=== PATIENT | male | born 1950 | race Caucasian/White ===

== ENCOUNTER 2017-04-05 23:29 | Emergency (ER) | payer MEDICARE, OTHER ==
[2017-04-06] MEDS ORDERED: ONDANSETRON HCL/PF 2 MG/ML VIAL ONE (00:12)
[2017-04-06] MEDS ORDERED: KETOROLAC TROMETHAMINE 30 MG/ML VIAL IV ONE (00:12)
[2017-04-06] MEDS ORDERED: KETOROLAC TROMETHAMINE 30 MG/ML VIAL ONE (00:12)
[2017-04-06] MEDS ORDERED: ONDANSETRON HCL/PF 2 MG/ML VIAL IV ONE (00:12)
--- NOTE | 2017-04-06 00:18 | ERNOTE ---
ER Male HPI Stated Complaint: ABA STONE ER Male: other - right flank pain Time Seen by Provider: 04/06/17 00:08 Source: patient Exam Limitations: no limitations Immunizations: IMMUNIZATION HX Immunizations Up to Date Yes Allergies/Adverse Reactions: Allergies No Known Allergies Allergy (Verified 04/05/17 23:39) Home Medications: HOME MEDICATIONS Psyllium Husk (with Sugar) [Metamucil Packet] 1 each PO BID 02/05/14 [Last Taken 02/12/14 16:30] Aspirin 81 mg PO DAILY 04/06/17 [Last Taken Unknown] Atorvastatin Calcium 40 mg PO DAILY 04/06/17 [Last Taken Unknown] Carvedilol [Coreg] 6.25 mg PO BID 04/06/17 [Last Taken Unknown] Losartan Potassium [Cozaar] 100 mg PO DAILY 04/06/17 [Last Taken Unknown] Nitroglycerin 0.4 mg SL PRN 04/06/17 [Last Taken Unknown] - History of Present Illness Narrative: pt states he was awakened by right flank pain around 21:25 last night. He expected the pain to resolve but it has worsened. He had previous kidney stone on the left Timing: Present: getting worse Quality: Present: moderate Onset Location: Present: right flank Activities at Onset: Present: sleep Prior Abdominal Problems: Present: similar symptoms Review of Systems - Review of Systems Constitutional: Absent: recent illness EYE: Present: no symptoms reported ENT: Present: no symptoms reported Respiratory: Present: no symptoms reported Cardiology: Present: no symptoms reported Gastrointestinal/Abdominal: Present: See HPI. Absent: vomiting, diarrhea, constipation Genitourinary: Absent: dysuria Musculoskeletal: Present: no symptoms reported Skin: Absent: rash - Patient's Past Medical History Patient History - Medical: Kidney stone Patient History - Cardiac/Respiratory: Coronary Heart Disease, Hypertension, Hyperlipidemia Patient History - Cancer: No Hx of Cancer Patient History - Surgical Procedures: Cardiac stent, Total Hip Replacement Patient History - Other: None - Social History Living Situations: home Psych History: No pertinent hx Smoking Status: Never smoker - Immunizations Immunizations Up to Date: Yes Physical Exam - Physical Exam General Appearance: Present: wd/wn, alert, no apparent distress Head Exam: Present: normal inspection, no evidence of injury Neck: Present: normal inspection, supple Respiratory: Present: no respiratory distress, normal breath sounds, no accessory muscle use, lungs clear Cardiovascular/Chest: Present: regular rate, rhythm, no murmur Gastrointestinal/Abdominal: Present: normal bowel sounds, tenderness - RLQ. Absent: distended, guarding, rebound Back Exam: Present: CVA tenderness (R) - minimal Extremity Exam: Present: normal inspection, normal range of motion Neurological Exam: Present: alert, oriented, normal mood/affect Skin Exam: Present: normal color, warm/dry ED Progress - Results and Orders Patient's Lab Results:: I have reviewed the patient's lab results. Results and Orders: Laboratory Tests 04/06/17 02:25 Urine Color Yellow Urine Appearance Cloudy Urine pH 6.0 Ur Specific [place] >=1.030 Urine Protein 30 H Urine Glucose (UA) Negative Urine Ketones Negative Urine Blood 250 H Urine Nitrate Negative Urine Bilirubin Negative Prot Sulfosalicylic Acd 2+ H Urine Urobilinogen Normal Ur Leukocyte Esterase 25 H Urine RBC 10-25 H Urine WBC 0-5 Ur Epithelial Cells 0-5 Urine Bacteria Trace Urine Mucus Moderate - 2+ H Urine Culture Comments Culture to follow - Vital Signs Patient's Vital Signs:: I have reviewed the patient's vital signs. Vital Signs: Vital Signs 04/05/17 23:35 Temperature 36.8 C Pulse Rate 69 Respiratory 18 Rate Blood Pressure 154/100 O2 Sat by Pulse 98 Oximetry - CT/Ultrasound CT/Ultrasound Narrative: CT abd/pelvis- stone protocol 10mm stone in the proximal right ureter with associated right hydronephrosis and hydroureter. Small non obstructing stones in bilateral kidneys Calcified nodule in the right middle lobe gallbladder partially distended without pericholecystic fluid or radiopaque cholelithiasis - Progress/Reassessment Chief Complaint: Genitourinary Problem Departure Clinical Impression: Ureterolithiasis - Departure Disposition: Home Follow Up Needed Condition: Good Instructions: Kidney Stones, [id number] Additional Instructions: Call your urologist in the morning for an appointment. Take the pain medications that you have at home as needed for pain. Referrals: Eduardo Sepulveda MD [Primary Care Provider] - Alessio Hernandez MD [Associate] -
[2017-04-06] MEDS ORDERED: NORMAL SALINE 1,000 ML IV PRN (01:09)
[2017-04-06 02:31] LABS: Urine Bilirubin Negative (NEGATIVE); Urine Blood 250 /ul (NEGATIVE); Urine Ketone Negative (NEGATIVE); Urine Nitrite Negative (NEGATIVE); Urine Protein 30 mg/dL (NEGATIVE); Urine Specific Gravity >=1.030 SP.GR. (1.005-1.030); Urine Urobilinogen Normal (NORMAL)
[2017-04-06 02:43] LABS: Urine Appearance Cloudy; Urine Bacteria TRACE; Urine Color Yellow; Urine WBC 0-5 /hpf (0-5)
[2017-04-06 02:44] LABS: Urine Mucus Moderate - 2+
[2017-04-06 04:11] VITALS: BP 119/63
== END 2017-04-06 04:22 | disposition home or self-care (01) ==
LOC: ER 23:29
DX: N20.1 Calculus of ureter (principal); Z87.442 Personal history of urinary calculi; I10 Essential (primary) hypertension; I50.9 Heart failure, unspecified; E78.5 Hyperlipidemia, unspecified
CPT/HCPCS: 74176; 81001; 87086; 96374; 96375; 99284; J2405

== ENCOUNTER 2017-04-08 12:23 | Day surgery (SDC) | payer MEDICARE, OTHER ==
[~2017-04-08 12:23] MED LIST: RINGER'S SOLUTION,LACTATED 1,000 ML IV PRN; ceFAZolin SODIUM 1 GM in DEXTROSE 5 % IN WATER 100 ML IV PRN
[2017-04-08] MEDS ORDERED: RINGER'S SOLUTION,LACTATED 1,000 ML IV ONE (14:02)
[2017-04-08 17:47] VITALS: BP 146/85
== END 2017-04-08 12:24 | disposition home or self-care (01) ==
LOC: AMB 12:23
PROVIDERS: ATTEND Urology
PROC: 0T768DZ Dilation of Right Ureter with Intraluminal Device, Via Natural or Artificial Opening Endoscopic (ICD-10-PCS; 2017-04-08)
PROC: 0TF68ZZ Fragmentation in Right Ureter, Via Natural or Artificial Opening Endoscopic (ICD-10-PCS; principal; 2017-04-08 14:30)
DX: N20.0 Calculus of kidney (principal); N20.1 Calculus of ureter; E66.9 Obesity, unspecified; Z68.31 Body mass index [BMI] 31.0-31.9, adult; Z87.891 Personal history of nicotine dependence

== ENCOUNTER 2017-04-15 11:10 | Day surgery (SDC) | payer MEDICARE, OTHER ==
[2017-04-15 12:38] VITALS: BP 135/84
== END 2017-04-15 11:11 | disposition home or self-care (01) ==
LOC: AMB 11:10
PROVIDERS: ATTEND Urology
PROC: 0TP98DZ Removal of Intraluminal Device from Ureter, Via Natural or Artificial Opening Endoscopic (ICD-10-PCS; principal; 2017-04-15 12:00)
DX: Z46.6 Encounter for fitting and adjustment of urinary device (principal); E66.9 Obesity, unspecified; Z68.31 Body mass index [BMI] 31.0-31.9, adult; Z87.891 Personal history of nicotine dependence